=== PATIENT | female | born 1980 | race Caucasian/White ===

== ENCOUNTER 2017-08-26 10:54 | Emergency (ER) | payer SELFPAY ==
[~2017-08-26] VITALS: Ht 157.5 cm; Wt 75.0 kg
[2017-08-26 10:55] VITALS: BP 110/60; PULSE 74; RESP 16; TEMP 98.4; O2SAT 99
[2017-08-26] MEDS ORDERED: SODIUM CHLORIDE 0.9% FLUSH 10 ML FLUSH IVF PRN (11:30)
[2017-08-26 11:49] VITALS: O2SAT 100
--- NOTE | 2017-08-26 11:51 | RADRPT ---
EXAM DATE/TIME: 08/26/2017 11:30 [place] COMPARISON: No previous studies available for comparison. INDICATIONS : Chest pain. MEDICAL HISTORY : None. SURGICAL HISTORY : None. ENCOUNTER: Initial ACUITY: 1 day PAIN SCORE: 10/10 LOCATION: middle chest. FINDINGS: A single view of the chest demonstrates the lungs to be symmetrically aerated without evidence of mas s, infiltrate or effusion. The cardiomediastinal contours are unremarkable. Osseous structures are intact. CONCLUSION: No acute disease. Ryne Garcia MD FACR on August 26, 2017 at 11:48 Board Certified Radiologist. This report was verified electronically.
--- NOTE | 2017-08-26 11:58 | PD ---
HPI Chief Complaint: Chest Pain Time Seen by Provider: 11:06 Travel History International Travel<30 days: No Contact w/Intl Traveler<30days: No Traveled to known affect area: No History of Present Illness HPI This is a 36-year-old female who presents to the emergency department with 1 week of chest discomfort described as in the center of her chest, sore, moderate severity, associated with numbness and tingling in her right arm. It' s intermittent and worse in the evenings. She also has had a headache which is the back of her head but this is been going on for a year. She has no other medical problems. She cleans hotels for a living. She is from [facility] but says she's been here for 11 years. History was obtained via video [employer] and [employer] grad[employer] [facility] Past Medical History Asthma: Yes (IN CHILDHOOD) Depression: Yes Diminished Hearing: No Immunizations Current: Yes Tetanus Vaccination: > 5 Years Influenza Vaccination: No ?: Not : 2 Para: 4 Tubal Ligation: Yes Past Surgical History Section: Yes Social History Alcohol Use: No Tobacco Use: No Substance Use: No Allergies-Medications (Allergen,Severity, Reaction): Coded Allergies: No Known Allergies (Verified , 02/12/15) Reported Meds & Prescriptions Reported Meds & Active Scripts Active No Active Prescriptions or Reported Medications Review of Systems Except as stated in HPI: all other systems reviewed are Neg Physical Exam Narrative GENERAL:Well appearing, no acute distress SKIN: Focused skin assessment warm and dry. HEAD: Atraumatic. Normocephalic. EYES: Pupils equal and round. No injection or drainage. ENT: Moist mucous membranes NECK: Trachea midline. CARDIOVASCULAR: Regular rate and rhythm. No murmur appreciated. RESPIRATORY: Clear to auscultation. Breath sounds equal bilaterally. GASTROINTESTINAL: Abdomen soft, non-tender, nondistended. MUSCULOSKELETAL: No obvious deformities. NEUROLOGICAL: Awake and alert. No obvious cranial nerve deficits. Moving all extremities. PSYCHIATRIC: Appropriate mood and affect; insight and judgment normal. Data Data Last Documented VS Vital Signs Date Time Temp Pulse Resp B/P (MAP) Pulse Ox O2 Delivery O2 Flow Rate FiO2 08/26/17 11:49 98 Room Air 08/26/17 11:49 08/26/17 11:09 70 18 08/26/17 10:55 98.4 Orders Orders Electrocardiogram (08/26/17 11:21) Complete Blood Count With Diff (08/26/17 11:21) Comprehensive Metabolic Panel (08/26/17 11:21) Troponin I (08/26/17 11:21) Chest, Single Ap (08/26/17 11:21) Ecg Monitoring (08/26/17 11:21) Bilateral Bp Monitoring (08/26/17 11:21) Iv Access Insert/Monitor (08/26/17 11:21) Oximetry (08/26/17 11:21) Oxygen Administration (08/26/17 11:21) Sodium Chloride 0.9% Flush (Ns Flush) (08/26/17 11:30) Labs Laboratory Tests Test 08/26/17 11:25 White Blood Count 7.6 TH/MM3 Red Blood Count 4.61 MIL/MM3 Hemoglobin 12.3 GM/DL Hematocrit 37.3 % Mean Corpuscular Volume 81.1 FL Mean Corpuscular Hemoglobin 26.7 PG Mean Corpuscular Hemoglobin Concent 32.9 % Red Cell Distribution Width 13.2 % Platelet Count 182 TH/MM3 Mean Platelet Volume 11.4 FL Neutrophils (%) (Auto) 66.2 % Lymphocytes (%) (Auto) 24.0 % Monocytes (%) (Auto) 6.7 % Eosinophils (%) (Auto) 2.8 % Basophils (%) (Auto) 0.3 % Neutrophils # (Auto) 5.1 TH/MM3 Lymphocytes # (Auto) 1.8 TH/MM3 Monocytes # (Auto) 0.5 TH/MM3 Eosinophils # (Auto) 0.2 TH/MM3 Basophils # (Auto) 0.0 TH/MM3 CBC Comment DIFF FINAL Differential Comment Blood Urea Nitrogen 12 MG/DL Creatinine 0.68 MG/DL Random Glucose 93 MG/DL Total Protein 7.6 GM/DL Albumin 3.8 GM/DL Calcium Level 8.5 MG/DL Alkaline Phosphatase 99 U/L Aspartate Amino Transf (AST/SGOT) 22 U/L Alanine Aminotransferase (ALT/SGPT) 25 U/L Total Bilirubin 0.4 MG/DL Sodium Level 139 MEQ/L Potassium Level 3.5 MEQ/L Chloride Level 108 MEQ/L Carbon Dioxide Level 25.6 MEQ/L Anion Gap 5 MEQ/L Estimat Glomerular Filtration Rate 98 ML/MIN Troponin I LESS THAN 0.02 NG/ML MDM Medical Decision Making Medical Screen Exam Complete: Yes Emergency Medical Condition: Yes Interpretation(s) EKG: Normal sinus rhythm with no ST changes Electrolytes are reassuring Troponin is normal Chest x-rays reassuring Differential Diagnosis Acute coronary syndrome, pericarditis, costochondritis, cervical radiculopathy, pneumonia Narrative Course This is a 36-year-old female who is healthy who presents typical chest pain and numbness and tingling in her right arm. She is a normal neurovascular exam of her right arm. She was placed on a monitor and an IV was established. Labs are obtained which were reassuring. EKG is nonischemic and chest x-rays unremarkable. I have a very low suspicion for acute coronary syndrome given the patient's pain is been going on for days, her troponin is negative and she has no risk factors. I suspect she has a cervical radiculopathy causing her arm tingling, and her chest pain is musculoskeletal. Patient was referred to [facility] for follow-up and was given a prescription for naproxen. She'll be discharged home. Diagnosis Primary Impression: Cervical radiculopathy Patient Instructions: General Instructions Additional Instructions: If you develop severe chest pain, shortness of breath, sweating, lightheadedness , dizziness or difficulty breathing return to the emergency department immediately. Followup with your primary care physician in 2-3 days if your symptoms are not resolved. Med/Other Pt SpecificInfo: Prescription(s) given Scripts Naproxen (Naproxen) 500 Mg Tab 500 MG PO BID Y for PAIN SCALE 4 TO 10, #20 TAB 0 Refills Prov: Beth Burkett MD 08/26/17 Disposition: 01 DISCHARGE HOME Condition: Stable Beth Burkett MD Aug 26, 2017 11:58
[2017-08-26 11:59] LABS: AUTOMATED NEUTROPHIL # 5.1 TH/MM3 (1.8-7.7); BASOPHIL % 0.3 % (0.0-2.0); EOSINOPHIL # 0.2 TH/MM3 (0-0.4); EOSINOPHIL % 2.8 % (0.0-4.0); HEMATOCRIT 37.3 % (35.0-46.0); HEMOGLOBIN 12.3 GM/DL (11.6-15.3); LYMPHOCYTE # 1.8 TH/MM3 (1.0-4.8); MEAN CELL VOLUME 81.1 FL (80.0-100.0); MEAN CORPUSCULAR HEMOGLOBIN 26.7 PG (27.0-34.0); MEAN CORPUSCULAR HGB CONC 32.9 % (32.0-36.0); MEAN PLATELET VOLUME 11.4 FL (7.0-11.0); MONO % 6.7 % (0.0-8.0); MONOCYTE # 0.5 TH/MM3 (0-0.9); NEUT % 66.2 % (16.0-70.0); PLATELET COUNT 182 TH/MM3 (150-450); RED BLOOD COUNT 4.61 MIL/MM3 (4.00-5.30); RED CELL DISTRIBUTION WIDTH 13.2 % (11.6-17.2); WHITE BLOOD COUNT 7.6 TH/MM3 (4.0-11.0)
[2017-08-26 12:19] LABS: ALBUMIN 3.8 GM/DL (3.4-5.0); ALT (GPT) 25 U/L (10-53); AST (GOT) 22 U/L (15-37); BICARBONATE 25.6 MEQ/L (21.0-32.0); BLOOD UREA NITROGEN 12 MG/DL (7-18); CALCIUM 8.5 MG/DL (8.5-10.1); CHLORIDE 108 MEQ/L (98-107); CREATININE 0.68 MG/DL (0.50-1.00); GLOMERULAR FILTRATION RATE 98 ML/MIN (>89); GLUCOSE,RANDOM 93 MG/DL (74-106); SODIUM (NA) 139 MEQ/L (136-145)
[2017-08-26 12:23] LABS: ALKALINE PHOSPHATASE 99 U/L (45-117); TOTAL BILIRUBIN ADULT 0.4 MG/DL (0.2-1.0); TOTAL PROTEIN 7.6 GM/DL (6.4-8.2); TROPONIN I LESS THAN 0.02 NG/ML (0.02-0.05)
[2017-08-26] MEDS ORDERED: NAPR500T2 PO (12:30)
--- NOTE | 2017-08-27 13:37 | EKG ---
Date Performed: 08/26/2017 Time Performed: 11:26:09 PTAGE: 36 years EKG: Sinus rhythm INCOMPLETE RIGHT BUNDLE BRANCH BLOCK BORDERLINE ECG NO PREVIOUS TRACING DOCTOR: Jhon Rojo Interpretating Date/Time 08/27/2017 13:36:45
== END 2017-08-26 12:51 | disposition home or self-care (01) ==
LOC: NEPC 10:54
DX: M54.12 Radiculopathy, cervical region (principal); R07.89 Other chest pain; R20.0 Anesthesia of skin; R51 Headache; F32.9 Major depressive disorder, single episode, unspecified; Z87.09 Personal history of other diseases of the respiratory system
CPT/HCPCS: 71010; 80053; 84484; 85025; 93005; 99285